=== PATIENT | female | born 1960 | race Caucasian/White ===

== ENCOUNTER → 2017-03-31 | Outpatient (CLI) | payer OTHER ==
[~2017-03-31] MED LIST: ASPI81TA28 PO; ATOR-24 PO; CLOP1TAB15 PO; DRGTP25; ERGO500037 PO; FOLI1TAB7 PO; GABA-113 PO; INSU3INJ3; IPRA1AER2 INH; METO25TA3 PO; MIRT30TA2 PO; NTRGSL/4 SL; OMEP20TA PO; OXYC15TA89 PO; PROBCAP2; RIVA1TAB4 PO; SYMIN160 INH; TEMA15CA4 PO; [UNRECOGNIZED DRUG - OTHER]
[2017-03-31 18:15] LABS: HEMATOCRIT 32.4 % (37-47); MEAN CELL VOLUME 87.3 fL (80-100); MEAN CORPUSCULAR HEMOGLOBIN 28.8 pg (25-34); MEAN PLATELET VOLUME 9.3 fL (7.4-10.4); PLATELET COUNT 773 K/uL (130-400); RED BLOOD COUNT 3.71 M/uL (4.2-5.4); WHITE BLOOD COUNT 16.35 K/uL (4.8-10.8)
[2017-03-31 18:44] LABS: ALT/SGPT 17 U/L (12-78); CHOLESTEROL 100 mg/dl (0-200); CHOLESTEROL/HDL RATIO 2.9; HDL CHOLESTEROL 34 mg/dl; TRIGLYCERIDES 243 mg/dl (0-150); VERY LOW DENSITY LIPOPROT CALC 49 mg/dl
[2017-03-31 19:11] LABS: BASO % 0.6 %; COMPLETE YES; EOS % 1.8 %; HYPERSEGMENTED POLYS OCCASIONAL; LYMPH % 32.1 %; LYMPH ABS # 5.25 K/uL (1.2-3.4); NEUT % 58.5 %
[2017-04-01 06:28] LABS: ESTIMATED AVERAGE GLUCOSE 183 mg/dl; HA1C FLAG Normal (Normal)
== END | disposition home or self-care (01) ==
LOC: C.LABMFLN 12:39
PROVIDERS: ATTEND Family Medicine
DX: E78.00 Pure hypercholesterolemia, unspecified (principal); I10 Essential (primary) hypertension; E11.49 Type 2 diabetes mellitus with other diabetic neurological complication; E11.65 Type 2 diabetes mellitus with hyperglycemia

== ENCOUNTER → 2017-07-01 | Outpatient (CLI) | payer OTHER ==
[2017-07-01 18:29] LABS: URINE APPEARANCE CLEAR (CLEAR); URINE BILIRUBIN NEG (NEG); URINE COLOR YELLOW; URINE NITRITE NEG (NEG); URINE PH 5.5 (4.5-7.5); URINE SPECIFIC GRAVITY 1.029 (1.000-1.030); UROBILINOGEN NEG (NEG)
[2017-07-01 18:31] LABS: MANUAL MICROSCOPIC REQUIRED? NO; REVIEW REQ? YES
[2017-07-01 18:45] LABS: URINE EPITHELIAL CELL AUTO >30 /lpf (0-5)
[2017-07-01 19:25] LABS: BLOOD UREA NITROGEN 9 mg/dl (7-18); BUN/CREATININE RATIO 9.5 (10-20); CALCIUM 8.2 mg/dl (8.5-10.1); CARBON DIOXIDE 25 mmol/L (21-32); CHLORIDE 95 mmol/L (98-107); CREATININE 0.99 mg/dl (0.60-1.20); GLUCOSE 508 mg/dl (70-99); POTASSIUM 4.4 mmol/L (3.5-5.1); SODIUM 127 mmol/L (136-145)
[2017-07-02 06:52] LABS: ESTIMATED AVERAGE GLUCOSE 278 mg/dl; HA1C FLAG Normal (Normal)
== END | disposition home or self-care (01) ==
LOC: C.LABMFLN 13:00
PROVIDERS: ATTEND Family Medicine
DX: E11.49 Type 2 diabetes mellitus with other diabetic neurological complication (principal); N30.00 Acute cystitis without hematuria